=== PATIENT | male | born 1940 | race Caucasian/White ===

== ENCOUNTER 2020-05-08 11:10 | Outpatient (CLI) | payer MEDICARE, BC ==
[~2020-05-08 11:10] MED LIST: ATOR40TA PO; DULO60CA45 PO; FURO80TA3 PO; HYDR-3974 PO; KETO15CR TP; METF-440 PO; NEBI5TAB8 PO; POTA10CA43 PO; VANC1PLA9 IV
== END 2020-05-08 23:59 | disposition home health service (06) ==
LOC: WOU 11:10
PROVIDERS: ATTEND Surgery
DX: I87.313 Chronic venous hypertension (idiopathic) with ulcer of bilateral lower extremity (principal); L97.822 Non-pressure chronic ulcer of other part of left lower leg with fat layer exposed; L97.812 Non-pressure chronic ulcer of other part of right lower leg with fat layer exposed; I89.0 Lymphedema, not elsewhere classified; I87.2 Venous insufficiency (chronic) (peripheral); I70.245 Atherosclerosis of native arteries of left leg with ulceration of other part of foot; L97.522 Non-pressure chronic ulcer of other part of left foot with fat layer exposed; E66.01 Morbid (severe) obesity due to excess calories; Z68.41 Body mass index [BMI] 40.0-44.9, adult; Z96.641 Presence of right artificial hip joint; Z79.01 Long term (current) use of anticoagulants
CPT/HCPCS: 11042; 11045

== ENCOUNTER 2020-12-01 09:00 | Outpatient (CLI) | payer MEDICARE, BC | END 2020-12-01 23:59 | disposition home health service (06) | LOC: WOU 09:00 | PROVIDERS: ATTEND Podiatrist Foot & Ankle Surgery | DX: I87.313 Chronic venous hypertension (idiopathic) with ulcer of bilateral lower extremity (principal); L97.822 Non-pressure chronic ulcer of other part of left lower leg with fat layer exposed; L97.812 Non-pressure chronic ulcer of other part of right lower leg with fat layer exposed; M79.605 Pain in left leg; M79.604 Pain in right leg; E11.40 Type 2 diabetes mellitus with diabetic neuropathy, unspecified; Z79.84 Long term (current) use of oral hypoglycemic drugs; I11.0 Hypertensive heart disease with heart failure; I50.9 Heart failure, unspecified; I48.91 Unspecified atrial fibrillation; Z79.01 Long term (current) use of anticoagulants | CPT/HCPCS: 11042; A6452; A6207 ==

== ENCOUNTER 2020-12-12 13:39 | Outpatient (CLI) | payer MEDICARE, BC | END 2020-12-12 23:59 | disposition home or self-care (01) | LOC: CARD 13:39 | PROVIDERS: ATTEND Podiatrist Foot & Ankle Surgery | DX: I87.2 Venous insufficiency (chronic) (peripheral) (principal); L97.829 Non-pressure chronic ulcer of other part of left lower leg with unspecified severity; L97.819 Non-pressure chronic ulcer of other part of right lower leg with unspecified severity | CPT/HCPCS: 93970-TC ==

== ENCOUNTER 2020-12-15 09:15 | Outpatient (CLI) | payer MEDICARE, BC ==
[2020-12-15] MEDS ORDERED: UREA 10% -AHA 4% CREAM 57 GM TUBE ONE (10:04)
== END 2020-12-15 23:59 | disposition home health service (06) ==
LOC: WOU 09:15
PROVIDERS: ATTEND Podiatrist Foot & Ankle Surgery
DX: I87.313 Chronic venous hypertension (idiopathic) with ulcer of bilateral lower extremity (principal); L97.822 Non-pressure chronic ulcer of other part of left lower leg with fat layer exposed; L97.812 Non-pressure chronic ulcer of other part of right lower leg with fat layer exposed; I87.2 Venous insufficiency (chronic) (peripheral); M79.605 Pain in left leg; M79.604 Pain in right leg; I11.0 Hypertensive heart disease with heart failure; I50.9 Heart failure, unspecified; I48.91 Unspecified atrial fibrillation; Z79.01 Long term (current) use of anticoagulants
CPT/HCPCS: 11042; A6207

== ENCOUNTER 2020-12-17 09:30 | Outpatient (CLI) | payer MEDICARE, BC ==
[2020-12-17] MEDS ORDERED: Z GUARD REMEDY 2 OZ OINT TP ONE (10:17)
== END 2020-12-17 23:59 | disposition home or self-care (01) ==
LOC: WOU 09:30
PROVIDERS: ATTEND Specialist
DX: L89.892 Pressure ulcer of other site, stage 2 (principal); I89.0 Lymphedema, not elsewhere classified; I87.2 Venous insufficiency (chronic) (peripheral); M79.605 Pain in left leg; M79.604 Pain in right leg; R73.03 Prediabetes; Z79.84 Long term (current) use of oral hypoglycemic drugs; L98.8 Other specified disorders of the skin and subcutaneous tissue; R32 Unspecified urinary incontinence; I11.0 Hypertensive heart disease with heart failure; I50.9 Heart failure, unspecified; I48.91 Unspecified atrial fibrillation; Z79.01 Long term (current) use of anticoagulants
CPT/HCPCS: A6207; G0463

== ENCOUNTER 2020-12-22 09:00 | Outpatient (CLI) | payer MEDICARE, BC ==
[2020-12-22] MEDS ORDERED: LIDOCAINE SOLN 4% 50 ML BOTTLE ONE (09:26)
[2020-12-23] MEDS ORDERED: UREA 10% -AHA 4% CREAM 57 GM TUBE ONE (13:16)
[2020-12-23] MEDS ORDERED: HYDROCORTISONE 1% CREAM 28.35 GM TUBE TP ONE (13:16)
[2020-12-23] MEDS ORDERED: CLOTRIMAZOLE 1% 15 GM TUBE TP ONE (13:16)
== END 2020-12-22 23:59 | disposition home health service (06) ==
LOC: WOU 09:00
PROVIDERS: ATTEND Podiatrist Foot & Ankle Surgery
DX: I87.313 Chronic venous hypertension (idiopathic) with ulcer of bilateral lower extremity (principal); L97.822 Non-pressure chronic ulcer of other part of left lower leg with fat layer exposed; L97.812 Non-pressure chronic ulcer of other part of right lower leg with fat layer exposed; L97.412 Non-pressure chronic ulcer of right heel and midfoot with fat layer exposed; I87.2 Venous insufficiency (chronic) (peripheral); I89.0 Lymphedema, not elsewhere classified; M79.605 Pain in left leg; M79.604 Pain in right leg; I11.0 Hypertensive heart disease with heart failure; I50.9 Heart failure, unspecified; I48.91 Unspecified atrial fibrillation; Z79.01 Long term (current) use of anticoagulants
CPT/HCPCS: 11042; A6207

== ENCOUNTER 2020-12-24 09:00 | Outpatient (CLI) | payer MEDICARE, BC ==
[2020-12-24] MEDS ORDERED: UREA 10% -AHA 4% CREAM 57 GM TUBE ONE (10:02)
== END 2020-12-24 23:59 | disposition home or self-care (01) ==
LOC: VASLAB 09:00
PROVIDERS: ATTEND Internal Medicine
DX: I87.2 Venous insufficiency (chronic) (peripheral) (principal); I89.0 Lymphedema, not elsewhere classified; I11.0 Hypertensive heart disease with heart failure; I50.9 Heart failure, unspecified; I48.91 Unspecified atrial fibrillation; R73.03 Prediabetes
CPT/HCPCS: A6452; G0463

== ENCOUNTER 2020-12-29 09:15 | Outpatient (CLI) | payer MEDICARE, BC | END 2020-12-29 23:59 | disposition home health service (06) | LOC: WOU 09:15 | PROVIDERS: ATTEND Podiatrist Foot & Ankle Surgery | DX: I87.313 Chronic venous hypertension (idiopathic) with ulcer of bilateral lower extremity (principal); L97.822 Non-pressure chronic ulcer of other part of left lower leg with fat layer exposed; L97.812 Non-pressure chronic ulcer of other part of right lower leg with fat layer exposed; L97.412 Non-pressure chronic ulcer of right heel and midfoot with fat layer exposed; I89.0 Lymphedema, not elsewhere classified; I87.2 Venous insufficiency (chronic) (peripheral); M79.605 Pain in left leg; M79.604 Pain in right leg; Z79.01 Long term (current) use of anticoagulants | CPT/HCPCS: 11042; A6210; A6452 ==

== ENCOUNTER 2021-01-05 09:15 | Outpatient (CLI) | payer MEDICARE, BC ==
[2021-01-05] MEDS ORDERED: UREA 10% -AHA 4% CREAM 57 GM TUBE ONE (09:59)
[2021-01-05] MEDS ORDERED: CLOTRIMAZOLE 1% 15 GM TUBE TP ONE (10:15)
== END 2021-01-05 23:59 | disposition home health service (06) ==
LOC: WOU 09:15
PROVIDERS: ATTEND Podiatrist Foot & Ankle Surgery
DX: I87.313 Chronic venous hypertension (idiopathic) with ulcer of bilateral lower extremity (principal); L97.412 Non-pressure chronic ulcer of right heel and midfoot with fat layer exposed; L97.822 Non-pressure chronic ulcer of other part of left lower leg with fat layer exposed; L97.812 Non-pressure chronic ulcer of other part of right lower leg with fat layer exposed; S90.422A Blister (nonthermal), left great toe, initial encounter; X58.XXXA Exposure to other specified factors, initial encounter; Y92.89 Other specified places as the place of occurrence of the external cause; I89.0 Lymphedema, not elsewhere classified; I87.2 Venous insufficiency (chronic) (peripheral); L89.892 Pressure ulcer of other site, stage 2; M79.605 Pain in left leg; M79.604 Pain in right leg; Z79.01 Long term (current) use of anticoagulants
CPT/HCPCS: 11042; 11043; A6207; A6210; A6452

== ENCOUNTER 2021-01-07 11:30 | Outpatient (CLI) | payer MEDICARE, BC ==
[2021-01-07] MEDS ORDERED: UREA 10% -AHA 4% CREAM 57 GM TUBE ONE (11:50)
[2021-01-07] MEDS ORDERED: Z GUARD REMEDY 2 OZ OINT TP ONE (12:17)
== END 2021-01-07 23:59 | disposition home health service (06) ==
LOC: WOU 11:30
PROVIDERS: ATTEND Specialist
DX: L89.892 Pressure ulcer of other site, stage 2 (principal); I89.0 Lymphedema, not elsewhere classified; I87.313 Chronic venous hypertension (idiopathic) with ulcer of bilateral lower extremity; L97.822 Non-pressure chronic ulcer of other part of left lower leg with fat layer exposed; L97.812 Non-pressure chronic ulcer of other part of right lower leg with fat layer exposed; L97.412 Non-pressure chronic ulcer of right heel and midfoot with fat layer exposed; S90.422D Blister (nonthermal), left great toe, subsequent encounter; X58.XXXD Exposure to other specified factors, subsequent encounter; I11.0 Hypertensive heart disease with heart failure; I50.9 Heart failure, unspecified; Z79.02 Long term (current) use of antithrombotics/antiplatelets; R73.03 Prediabetes; Z79.84 Long term (current) use of oral hypoglycemic drugs
CPT/HCPCS: A6207; A6210; G0463

== ENCOUNTER 2021-01-12 09:00 | Outpatient (CLI) | payer MEDICARE, BC ==
[2021-01-12] MEDS ORDERED: CLOTRIMAZOLE 1% 15 GM TUBE TP ONE (09:44)
== END 2021-01-12 23:59 | disposition home health service (06) ==
LOC: WOU 09:00
PROVIDERS: ATTEND Podiatrist Foot & Ankle Surgery
DX: I87.313 Chronic venous hypertension (idiopathic) with ulcer of bilateral lower extremity (principal); L97.412 Non-pressure chronic ulcer of right heel and midfoot with fat layer exposed; L97.522 Non-pressure chronic ulcer of other part of left foot with fat layer exposed; L97.822 Non-pressure chronic ulcer of other part of left lower leg with fat layer exposed; I87.2 Venous insufficiency (chronic) (peripheral); M79.605 Pain in left leg; M79.604 Pain in right leg; I89.0 Lymphedema, not elsewhere classified; I11.0 Hypertensive heart disease with heart failure; I50.9 Heart failure, unspecified; Z79.01 Long term (current) use of anticoagulants; R73.03 Prediabetes; Z79.84 Long term (current) use of oral hypoglycemic drugs
CPT/HCPCS: 11042; A6207; A6210

== ENCOUNTER 2021-01-19 09:25 | Outpatient (CLI) | payer MEDICARE, BC | END 2021-01-19 23:59 | disposition home health service (06) | LOC: WOU 09:25 | PROVIDERS: ATTEND Podiatrist Foot & Ankle Surgery | DX: I87.312 Chronic venous hypertension (idiopathic) with ulcer of left lower extremity (principal); L97.822 Non-pressure chronic ulcer of other part of left lower leg with fat layer exposed; L97.522 Non-pressure chronic ulcer of other part of left foot with fat layer exposed; I87.2 Venous insufficiency (chronic) (peripheral); I89.0 Lymphedema, not elsewhere classified; L89.892 Pressure ulcer of other site, stage 2; M79.605 Pain in left leg; M79.604 Pain in right leg; I11.0 Hypertensive heart disease with heart failure; I50.9 Heart failure, unspecified; Z79.01 Long term (current) use of anticoagulants; R73.03 Prediabetes; Z79.84 Long term (current) use of oral hypoglycemic drugs | CPT/HCPCS: 11042; A6207; A6209 ×2; A6210 ==

== ENCOUNTER 2021-01-26 09:10 | Outpatient (CLI) | payer MEDICARE, BC | END 2021-01-26 23:59 | disposition home health service (06) | LOC: WOU 09:10 | PROVIDERS: ATTEND Podiatrist Foot & Ankle Surgery | DX: I87.312 Chronic venous hypertension (idiopathic) with ulcer of left lower extremity (principal); L97.522 Non-pressure chronic ulcer of other part of left foot with fat layer exposed; I89.0 Lymphedema, not elsewhere classified; L89.892 Pressure ulcer of other site, stage 2; M79.605 Pain in left leg; M79.604 Pain in right leg; R73.03 Prediabetes; Z79.84 Long term (current) use of oral hypoglycemic drugs; I10 Essential (primary) hypertension; Z79.01 Long term (current) use of anticoagulants | CPT/HCPCS: 11042; A6207; A6209; A6210 ==

== ENCOUNTER 2021-02-09 09:20 | Outpatient (CLI) | payer MEDICARE, BC ==
[2021-02-09] MEDS ORDERED: UREA 10% -AHA 4% CREAM 57 GM TUBE ONE (10:14)
== END 2021-02-09 23:59 | disposition home health service (06) ==
LOC: WOU 09:20
PROVIDERS: ATTEND Podiatrist Foot & Ankle Surgery
DX: I87.312 Chronic venous hypertension (idiopathic) with ulcer of left lower extremity (principal); L97.522 Non-pressure chronic ulcer of other part of left foot with fat layer exposed; I87.2 Venous insufficiency (chronic) (peripheral); I89.0 Lymphedema, not elsewhere classified; L89.892 Pressure ulcer of other site, stage 2; M79.605 Pain in left leg; M79.604 Pain in right leg; Z79.01 Long term (current) use of anticoagulants; R73.03 Prediabetes; Z79.84 Long term (current) use of oral hypoglycemic drugs
CPT/HCPCS: 29581; A6207 ×2; A6209; 29580

== ENCOUNTER 2021-02-16 09:15 | Outpatient (CLI) | payer MEDICARE, BC | END 2021-02-16 23:59 | disposition home health service (06) | LOC: WOU 09:15 | PROVIDERS: ATTEND Podiatrist Foot & Ankle Surgery | DX: I87.312 Chronic venous hypertension (idiopathic) with ulcer of left lower extremity (principal); L97.528 Non-pressure chronic ulcer of other part of left foot with other specified severity; I87.2 Venous insufficiency (chronic) (peripheral); I89.0 Lymphedema, not elsewhere classified; L89.892 Pressure ulcer of other site, stage 2; M79.605 Pain in left leg; M79.604 Pain in right leg; R73.03 Prediabetes; Z79.84 Long term (current) use of oral hypoglycemic drugs; I10 Essential (primary) hypertension; Z79.01 Long term (current) use of anticoagulants | CPT/HCPCS: 29581; A6207; 29580 ==

== ENCOUNTER 2021-03-02 09:45 | Outpatient (CLI) | payer MEDICARE, BC | END 2021-03-02 23:59 | disposition home health service (06) | LOC: WOU 09:45 | PROVIDERS: ATTEND Podiatrist Foot & Ankle Surgery | DX: I87.312 Chronic venous hypertension (idiopathic) with ulcer of left lower extremity (principal); L97.321 Non-pressure chronic ulcer of left ankle limited to breakdown of skin; S90.424A Blister (nonthermal), right lesser toe(s), initial encounter; X58.XXXA Exposure to other specified factors, initial encounter; Y92.89 Other specified places as the place of occurrence of the external cause; Y99.9 Unspecified external cause status; I87.2 Venous insufficiency (chronic) (peripheral); I89.0 Lymphedema, not elsewhere classified; L89.892 Pressure ulcer of other site, stage 2; M79.605 Pain in left leg; M79.604 Pain in right leg; Z79.01 Long term (current) use of anticoagulants | CPT/HCPCS: 29581; A6207; 29580 ==

== ENCOUNTER 2021-03-16 09:45 | Outpatient (CLI) | payer MEDICARE, BC | END 2021-03-16 23:59 | disposition home health service (06) | LOC: WOU 09:45 | PROVIDERS: ATTEND Podiatrist Foot & Ankle Surgery | DX: I87.313 Chronic venous hypertension (idiopathic) with ulcer of bilateral lower extremity (principal); L97.321 Non-pressure chronic ulcer of left ankle limited to breakdown of skin; L97.521 Non-pressure chronic ulcer of other part of left foot limited to breakdown of skin; I87.2 Venous insufficiency (chronic) (peripheral); I89.0 Lymphedema, not elsewhere classified; L89.892 Pressure ulcer of other site, stage 2; M79.605 Pain in left leg; M79.604 Pain in right leg; R73.03 Prediabetes; Z79.84 Long term (current) use of oral hypoglycemic drugs; Z79.01 Long term (current) use of anticoagulants | CPT/HCPCS: 29581 ×2; A6207 ==

== ENCOUNTER 2021-04-06 09:20 | Outpatient (CLI) | payer MEDICARE, BC | END 2021-04-06 23:59 | disposition home health service (06) | LOC: WOU 09:20 | PROVIDERS: ATTEND Podiatrist Foot & Ankle Surgery | DX: I87.312 Chronic venous hypertension (idiopathic) with ulcer of left lower extremity (principal); L97.522 Non-pressure chronic ulcer of other part of left foot with fat layer exposed; L97.822 Non-pressure chronic ulcer of other part of left lower leg with fat layer exposed; L60.3 Nail dystrophy; I89.0 Lymphedema, not elsewhere classified; I87.2 Venous insufficiency (chronic) (peripheral); M79.605 Pain in left leg; M79.604 Pain in right leg; L89.892 Pressure ulcer of other site, stage 2; Z79.01 Long term (current) use of anticoagulants | CPT/HCPCS: 11042; 11720 ==

== ENCOUNTER 2021-04-13 09:50 | Outpatient (CLI) | payer MEDICARE, BC ==
[2021-04-13] MEDS ORDERED: UREA 10% -AHA 4% CREAM 57 GM TUBE ONE (10:36)
== END 2021-04-13 23:59 | disposition home health service (06) ==
LOC: WOU 09:50
PROVIDERS: ATTEND Podiatrist Foot & Ankle Surgery
DX: I87.312 Chronic venous hypertension (idiopathic) with ulcer of left lower extremity (principal); L97.822 Non-pressure chronic ulcer of other part of left lower leg with fat layer exposed; L97.521 Non-pressure chronic ulcer of other part of left foot limited to breakdown of skin; I89.0 Lymphedema, not elsewhere classified; L60.3 Nail dystrophy; Z98.84 Bariatric surgery status; I11.0 Hypertensive heart disease with heart failure; I50.9 Heart failure, unspecified; I48.91 Unspecified atrial fibrillation; Z96.641 Presence of right artificial hip joint; Z79.84 Long term (current) use of oral hypoglycemic drugs; E11.9 Type 2 diabetes mellitus without complications; Z86.31 Personal history of diabetic foot ulcer; Z79.02 Long term (current) use of antithrombotics/antiplatelets; Z79.899 Other long term (current) drug therapy
CPT/HCPCS: 11042

== ENCOUNTER 2021-04-20 09:30 | Outpatient (CLI) | payer MEDICARE, BC ==
[2021-04-20] MEDS ORDERED: LIDOCAINE SOLN 4% 50 ML BOTTLE ONE (09:46)
[2021-04-20] MEDS ORDERED: UREA 10% -AHA 4% CREAM 57 GM TUBE ONE (09:59)
== END 2021-04-20 23:59 | disposition home health service (06) ==
LOC: WOU 09:30
PROVIDERS: ATTEND Podiatrist Foot & Ankle Surgery
DX: I87.312 Chronic venous hypertension (idiopathic) with ulcer of left lower extremity (principal); L97.822 Non-pressure chronic ulcer of other part of left lower leg with fat layer exposed; I89.0 Lymphedema, not elsewhere classified; L60.3 Nail dystrophy; M79.604 Pain in right leg; M79.605 Pain in left leg; R73.03 Prediabetes; Z96.641 Presence of right artificial hip joint; I10 Essential (primary) hypertension; I48.91 Unspecified atrial fibrillation; Z79.02 Long term (current) use of antithrombotics/antiplatelets; Z79.899 Other long term (current) drug therapy
CPT/HCPCS: 11042; A6253

== ENCOUNTER 2021-04-27 09:00 | Outpatient (CLI) | payer MEDICARE, BC ==
[2021-04-27] MEDS ORDERED: LIDOCAINE SOLN 4% 50 ML BOTTLE ONE (09:09)
== END 2021-04-27 23:59 | disposition home health service (06) ==
LOC: WOU 09:00
PROVIDERS: ATTEND Podiatrist Foot & Ankle Surgery
DX: I87.312 Chronic venous hypertension (idiopathic) with ulcer of left lower extremity (principal); L97.822 Non-pressure chronic ulcer of other part of left lower leg with fat layer exposed; I87.2 Venous insufficiency (chronic) (peripheral); L60.3 Nail dystrophy; I89.0 Lymphedema, not elsewhere classified; M79.604 Pain in right leg; M79.605 Pain in left leg; Z96.641 Presence of right artificial hip joint
CPT/HCPCS: 11042

== ENCOUNTER 2021-05-04 09:15 | Outpatient (CLI) | payer MEDICARE, BC | END 2021-05-04 23:59 | disposition home health service (06) | LOC: WOU 09:15 | PROVIDERS: ATTEND Podiatrist Foot & Ankle Surgery | DX: I87.312 Chronic venous hypertension (idiopathic) with ulcer of left lower extremity (principal); L97.822 Non-pressure chronic ulcer of other part of left lower leg with fat layer exposed; I89.0 Lymphedema, not elsewhere classified; I87.2 Venous insufficiency (chronic) (peripheral); M79.604 Pain in right leg; M79.605 Pain in left leg; L60.3 Nail dystrophy | CPT/HCPCS: 11042 ==

== ENCOUNTER 2021-05-18 09:15 | Outpatient (CLI) | payer MEDICARE, BC ==
[2021-05-18] MEDS ORDERED: LIDOCAINE SOLN 4% 50 ML BOTTLE ONE (09:50)
[2021-05-18] MEDS ORDERED: UREA 10% -AHA 4% CREAM 57 GM TUBE ONE (10:14)
== END 2021-05-18 23:59 | disposition home health service (06) ==
LOC: WOU 09:15
PROVIDERS: ATTEND Podiatrist Foot & Ankle Surgery
DX: I87.312 Chronic venous hypertension (idiopathic) with ulcer of left lower extremity (principal); L97.822 Non-pressure chronic ulcer of other part of left lower leg with fat layer exposed; I87.2 Venous insufficiency (chronic) (peripheral); L89.892 Pressure ulcer of other site, stage 2; I89.0 Lymphedema, not elsewhere classified; L60.3 Nail dystrophy; M79.605 Pain in left leg; M79.604 Pain in right leg; Z89.422 Acquired absence of other left toe(s); Z96.641 Presence of right artificial hip joint; Z79.01 Long term (current) use of anticoagulants; R73.03 Prediabetes; Z79.84 Long term (current) use of oral hypoglycemic drugs
CPT/HCPCS: 11042; A6197

== ENCOUNTER 2021-06-01 09:30 | Outpatient (CLI) | payer MEDICARE, BC ==
[2021-06-01] MEDS ORDERED: UREA 10% -AHA 4% CREAM 57 GM TUBE ONE (09:39)
[2021-06-01] MEDS ORDERED: LIDOCAINE SOLN 4% 50 ML BOTTLE ONE (09:47)
== END 2021-06-01 23:59 | disposition home health service (06) ==
LOC: WOU 09:30
PROVIDERS: ATTEND Podiatrist Foot & Ankle Surgery
DX: I87.312 Chronic venous hypertension (idiopathic) with ulcer of left lower extremity (principal); L97.822 Non-pressure chronic ulcer of other part of left lower leg with fat layer exposed; I89.0 Lymphedema, not elsewhere classified; I87.2 Venous insufficiency (chronic) (peripheral); L89.892 Pressure ulcer of other site, stage 2; L60.3 Nail dystrophy; M79.605 Pain in left leg; M79.604 Pain in right leg; Z79.84 Long term (current) use of oral hypoglycemic drugs; Z79.01 Long term (current) use of anticoagulants
CPT/HCPCS: 11042; A6197

== ENCOUNTER → 2021-06-08 | Outpatient (CLI) | payer MEDICARE, BC ==
[~2021-06-08] MED LIST changes: +LIDOCAINE SOLN 4% 50 ML BOTTLE ONE; +UREA 10% -AHA 4% CREAM 57 GM TUBE ONE
== END | disposition home health service (06) ==
LOC: WOU 09:30
PROVIDERS: ATTEND Podiatrist Foot & Ankle Surgery
DX: I87.312 Chronic venous hypertension (idiopathic) with ulcer of left lower extremity (principal); L97.822 Non-pressure chronic ulcer of other part of left lower leg with fat layer exposed; I87.2 Venous insufficiency (chronic) (peripheral); I89.0 Lymphedema, not elsewhere classified; L89.892 Pressure ulcer of other site, stage 2; M79.605 Pain in left leg; M79.604 Pain in right leg; L60.3 Nail dystrophy; I10 Essential (primary) hypertension; R73.03 Prediabetes; Z79.84 Long term (current) use of oral hypoglycemic drugs
CPT/HCPCS: 11042

== ENCOUNTER 2021-06-10 08:45 | Outpatient (CLI) | payer MEDICARE, BC ==
[~2021-06-10 08:45] MED LIST changes: -LIDOCAINE SOLN 4% 50 ML BOTTLE ONE; -UREA 10% -AHA 4% CREAM 57 GM TUBE ONE
[2021-06-10] MEDS ORDERED: UREA 10% -AHA 4% CREAM 57 GM TUBE ONE (09:35)
== END 2021-06-10 23:59 | disposition home or self-care (01) ==
LOC: VASLAB 08:45
PROVIDERS: ATTEND Internal Medicine
DX: I87.2 Venous insufficiency (chronic) (peripheral) (principal); I48.91 Unspecified atrial fibrillation; I50.32 Chronic diastolic (congestive) heart failure; I11.0 Hypertensive heart disease with heart failure; E11.9 Type 2 diabetes mellitus without complications; I89.0 Lymphedema, not elsewhere classified
CPT/HCPCS: G0463

== ENCOUNTER 2021-06-15 09:30 | Outpatient (CLI) | payer MEDICARE, BC | END 2021-06-15 23:59 | disposition home health service (06) | LOC: WOU 09:30 | PROVIDERS: ATTEND Podiatrist Foot & Ankle Surgery | DX: I87.313 Chronic venous hypertension (idiopathic) with ulcer of bilateral lower extremity (principal); L97.318 Non-pressure chronic ulcer of right ankle with other specified severity; L97.822 Non-pressure chronic ulcer of other part of left lower leg with fat layer exposed; L97.828 Non-pressure chronic ulcer of other part of left lower leg with other specified severity; I87.2 Venous insufficiency (chronic) (peripheral); I89.0 Lymphedema, not elsewhere classified; Z79.01 Long term (current) use of anticoagulants; R73.03 Prediabetes; Z79.84 Long term (current) use of oral hypoglycemic drugs; L60.3 Nail dystrophy; M79.605 Pain in left leg; M79.604 Pain in right leg | CPT/HCPCS: 11042 ==

== ENCOUNTER 2021-06-22 09:20 | Outpatient (CLI) | payer MEDICARE, BC ==
[2021-06-22] MEDS ORDERED: LIDOCAINE SOLN 4% 50 ML BOTTLE ONE (09:27)
[2021-06-22] MEDS ORDERED: UREA 10% -AHA 4% CREAM 57 GM TUBE ONE (09:59)
== END 2021-06-22 23:59 | disposition home health service (06) ==
LOC: WOU 09:20
PROVIDERS: ATTEND Podiatrist Foot & Ankle Surgery
DX: I87.312 Chronic venous hypertension (idiopathic) with ulcer of left lower extremity (principal); L97.822 Non-pressure chronic ulcer of other part of left lower leg with fat layer exposed; I87.2 Venous insufficiency (chronic) (peripheral); I89.0 Lymphedema, not elsewhere classified; L60.3 Nail dystrophy; M79.605 Pain in left leg; M79.604 Pain in right leg; Z79.84 Long term (current) use of oral hypoglycemic drugs; R73.03 Prediabetes; Z79.01 Long term (current) use of anticoagulants
CPT/HCPCS: 11042

== ENCOUNTER 2021-07-06 09:30 | Outpatient (CLI) | payer MEDICARE, BC ==
[2021-07-06] MEDS ORDERED: LIDOCAINE SOLN 4% 50 ML BOTTLE ONE (09:48)
== END 2021-07-06 23:59 | disposition home health service (06) ==
LOC: WOU 09:30
PROVIDERS: ATTEND Podiatrist Foot & Ankle Surgery
DX: I87.312 Chronic venous hypertension (idiopathic) with ulcer of left lower extremity (principal); L97.822 Non-pressure chronic ulcer of other part of left lower leg with fat layer exposed; I87.2 Venous insufficiency (chronic) (peripheral); I89.0 Lymphedema, not elsewhere classified; M79.605 Pain in left leg; M79.604 Pain in right leg; L60.3 Nail dystrophy; R73.03 Prediabetes; Z79.84 Long term (current) use of oral hypoglycemic drugs; I11.0 Hypertensive heart disease with heart failure; I50.9 Heart failure, unspecified
CPT/HCPCS: 11042

== ENCOUNTER 2021-07-20 09:00 | Outpatient (CLI) | payer MEDICARE, BC | END 2021-07-20 23:59 | disposition home health service (06) | LOC: WOU 09:00 | PROVIDERS: ATTEND Podiatrist Foot & Ankle Surgery | DX: S90.425A Blister (nonthermal), left lesser toe(s), initial encounter (principal); X58.XXXA Exposure to other specified factors, initial encounter; Y92.89 Other specified places as the place of occurrence of the external cause; I87.2 Venous insufficiency (chronic) (peripheral); I89.0 Lymphedema, not elsewhere classified; M79.604 Pain in right leg; L60.3 Nail dystrophy; M79.605 Pain in left leg; I11.0 Hypertensive heart disease with heart failure; I50.9 Heart failure, unspecified; Z79.01 Long term (current) use of anticoagulants; R73.03 Prediabetes; Z79.84 Long term (current) use of oral hypoglycemic drugs | CPT/HCPCS: G0463 ==

== ENCOUNTER 2021-08-03 09:15 | Outpatient (CLI) | payer MEDICARE, BC | END 2021-08-03 23:59 | disposition home health service (06) | LOC: WOU 09:15 | PROVIDERS: ATTEND Podiatrist Foot & Ankle Surgery | DX: S90.424A Blister (nonthermal), right lesser toe(s), initial encounter (principal); X58.XXXA Exposure to other specified factors, initial encounter; Y92.89 Other specified places as the place of occurrence of the external cause; I87.2 Venous insufficiency (chronic) (peripheral); I89.0 Lymphedema, not elsewhere classified; L89.892 Pressure ulcer of other site, stage 2; L60.3 Nail dystrophy; M79.605 Pain in left leg; M79.604 Pain in right leg; Z79.01 Long term (current) use of anticoagulants | CPT/HCPCS: G0463 ==